=== PATIENT | female | born 1975 | race Caucasian/White ===

== ENCOUNTER → 2024-11-04 09:44 | Outpatient (REF) | payer OTHER, SELFPAY | LOC: WDC 09:44 | PROVIDERS: ATTENDING PHYSICIAN Physician Assistant Medical | DX: N63.21 Unspecified lump in the left breast, upper outer quadrant (principal) | CPT/HCPCS: 76642; 77062; 77066 ==

== ENCOUNTER → 2024-11-17 14:42 | Outpatient (REF) | payer OTHER, SELFPAY | LOC: RAD 14:42 | PROVIDERS: ATTENDING PHYSICIAN Urology | DX: N30.10 Interstitial cystitis (chronic) without hematuria (principal); M62.89 Other specified disorders of muscle | CPT/HCPCS: 76770; 76856 ==